=== PATIENT | male | born 1990 | race Caucasian/White ===

== ENCOUNTER 2017-10-04 18:46 | Inpatient (IN) | payer BC ==
[~2017-10-04] VITALS: Ht 182.9 cm; Wt 80.7 kg
--- NOTE | 2017-10-04 19:16 | NUR ---
MD KEANE AT BEDSIDE FOR MSE
--- NOTE | 2017-10-04 19:34 | NUR ---
PT REFUSING BLOOD DRAW. MADE AWARE.
[2017-10-04 19:56] LABS: *BILIRUBIN,URIN NEGATIVE (NEGATIVE); *BLOOD, URINE NEGATIVE (NEGATIVE); *CLARITY,URINE CLEAR (CLEAR); *COLOR,URINE LIGHT YELLOW (YELLOW); *KETONES,URINE NEGATIVE (NEGATIVE); *PROTEIN,URINE NEGATIVE (NEGATIVE); *UROBILINOGEN,URINE 0.2 E.U./dl (NORMAL); LEUKOCYTE ESTERASE ,URINE NEGATIVE (NEGATIVE); NITRITE, URINE NEGATIVE (NEGATIVE); UGLUCOSE NEGATIVE (NEGATIVE)
--- NOTE | 2017-10-04 19:58 | NUR ---
US AT BEDSIDE
[2017-10-04 20:02] LABS: WBC,URINE NONE SEEN /HPF (0-3)
--- NOTE | 2017-10-04 20:34 | NUR ---
PT IN ROUTE TO CT IN [place] W/ TRANSPORTER
--- NOTE | 2017-10-04 20:50 | NUR ---
PT RETURNS FROM CT IN [place] W/ NIECY
[2017-10-04] MEDS ORDERED: IV NS 1000 ML 1,000 ML IV PRN (21:15)
[2017-10-04] MEDS ORDERED: PIPERACILLIN/TAZOBACTAM/D5W 3.375 G in PREMIXED 1 EACH IV ONE (21:15)
--- NOTE | 2017-10-04 21:18 | NUR ---
Dr Deleon speaking with DR Montague for surgery consult
[2017-10-04] MEDS ORDERED: IV NS 1000 ML 1,000 ML IV ONE (21:30)
[2017-10-04] MEDS ORDERED: LORAZEPAM 2 MG/1 ML VIAL IV ONE (21:30)
[2017-10-04] MEDS ORDERED: ONDANSETRON IV *ER 4 MG/2 ML VIAL IV ONE (21:46)
[2017-10-04] MEDS ORDERED: LORAZEPAM 2 MG/1 ML VIAL ONE (21:46)
[2017-10-04] MEDS ORDERED: PIPERACILLIN/TAZOBACTAM/D5W 50 ML IV ONE (21:47)
[2017-10-04] MEDS ORDERED: ONDANSETRON 4 MG/2 ML VIAL ONE (21:54)
[2017-10-04] MEDS ORDERED: PANTOPRAZOLE SODIUM 40 MG VIAL ONE (21:54)
[2017-10-04 21:57] LABS: BASOPHILS # (AUTO) 0.1 K/uL (0.0-8.0); BASOPHILS % (AUTO) 0.7 % (0.0-2.0); EOSINOPHILS # (AUTO) 0.4 K/uL (0.0-0.7); EOSINOPHILS % (AUTO) 2.8 % (0.0-7.0); HEMOGLOBIN 16.2 g/dL (12.5-16.3); LYMPHOCYTES # (AUTO) 3.1 K/uL (20.0-40.0); LYMPHOCYTES % (AUTO) 23.5 % (20.5-51.5); MEAN CORPUSCULAR HEMOGLOBIN 31.5 uug (23.8-33.4); MEAN CORPUSCULAR HGB CONC 34 g/dL (32.5-36.3); MEAN CORPUSCULAR VOLUME 91.5 fL (73.0-96.2); MONOCYTES % (AUTO) 7.8 % (0.0-11.0); NEUTROPHILS # (AUTO) 8.6 K/uL (1.8-8.9); NEUTROPHILS % (AUTO) 65.2 % (38.5-71.5); PLATELET COUNT (AUTO) 297 K/uL (152-348); RED BLOOD CELL COUNT(AUTO) 5.14 MIL/uL (4.06-5.63); WHITE BLOOD COUNT (AUTO) 13.1 K/uL (3.6-10.2)
[2017-10-04] MEDS ORDERED: PANTOPRAZOLE SODIUM 40 MG VIAL IV ONE (22:00)
[2017-10-04 22:05] LABS: POTASSIUM 3.5 mmol/L (3.5-5.1)
[2017-10-04 22:10] LABS: BILIRUBIN,TOTAL 0.5 mg/dL (0.2-1.0); TOTAL PROTEIN, SERUM 8.3 g/dL (6.4-8.2)
--- NOTE | 2017-10-04 22:30 | NUR ---
REPORT GIVEN TO [facility] NURSEANGEL
--- NOTE | 2017-10-04 22:40 | NUR ---
Pt. admitted to [facility], under care of CHEF CONCIERGE SAJAN Belongs List completed
[2017-10-04 22:45] VITALS: BP 121/73
[2017-10-05] MEDS ORDERED: Z GUARD REMEDY PASTE 57 GM TUBE TOP PRN
[2017-10-05] MEDS ORDERED: ONDANSETRON 4 MG/2 ML VIAL IV PRN
[2017-10-05] MEDS ORDERED: ACETAMINOPHEN 325 MG TABLET PO PRN
[2017-10-05] MEDS: MORPHINE SULFATE 2 MG/1 ML DISP.SYRIN IV PRN ×3 (00:17→20:20)
[2017-10-05] MEDS: LORAZEPAM 2 MG/1 ML VIAL IV PRN ×2 (00:48→10:35)
[2017-10-05 03:44] VITALS: BP 99/64
[2017-10-05] MEDS ORDERED: PIPERACILLIN/TAZOBACTAM/D5W 50 ML IV ONE (04:57)
[2017-10-05] MEDS: PIPERACILLIN/TAZOBACTAM/D5W 3.375 G in PREMIXED 1 EACH IV SCH ×3 (05:20→22:59)
[2017-10-05] MEDS ORDERED: LIDOCAINE 1%-EPI 1:100,000 20 ML VIAL ONE (05:33)
[2017-10-05] MEDS ORDERED: BUPIVACAINE 0.25% 30 ML VIAL ONE ×2 (05:33→17:26)
[2017-10-05 06:13] LABS: BASOPHILS # (AUTO) 0.1 K/uL (0.0-8.0); BASOPHILS % (AUTO) 0.6 % (0.0-2.0); EOSINOPHILS # (AUTO) 0.3 K/uL (0.0-0.7); EOSINOPHILS % (AUTO) 2.9 % (0.0-7.0); HEMATOCRIT 42.2 % (36.7-47.1); HEMOGLOBIN 14.6 g/dL (12.5-16.3); LYMPHOCYTES # (AUTO) 2.4 K/uL (20.0-40.0); LYMPHOCYTES % (AUTO) 22.8 % (20.5-51.5); MEAN CORPUSCULAR HEMOGLOBIN 31.8 uug (23.8-33.4); MEAN CORPUSCULAR HGB CONC 35 g/dL (32.5-36.3); MEAN CORPUSCULAR VOLUME 91.7 fL (73.0-96.2); MONOCYTES % (AUTO) 9.1 % (0.0-11.0); NEUTROPHILS # (AUTO) 6.9 K/uL (1.8-8.9); NEUTROPHILS % (AUTO) 64.6 % (38.5-71.5); PLATELET COUNT (AUTO) 247 K/uL (152-348); WHITE BLOOD COUNT (AUTO) 10.6 K/uL (3.6-10.2)
[2017-10-05 06:37] LABS: CREATININE 1.1 mg/dL (0.6-1.3); PHOSPHOROUS 4.5 mg/dL (2.5-4.9); POTASSIUM 3.7 mmol/L (3.5-5.1)
--- NOTE | 2017-10-05 07:25 | NUR ---
RECEIVED PATIENT ON BED ASLEEP, AAOX4. IV ACCESS ON RIGHT AC #18 INTACT AND PATENT RUNNING NS @ 75 CC/HR INFUSING WELL. WBC TRENDING DOWN 10.6 THIS AM. AFEBRILE. ON NPO. PENDING LAP APPENDECTOMY LATER TODAY. CONSENT SIGNED. COMFORT MEASURES PROVIDED. CALL LIGHT WITHIN REACH WILL CONTINUE TO MONITOR CLOSELY.
[2017-10-05] MEDS: PANTOPRAZOLE SODIUM 40 MG VIAL IV SCH (08:20)
[2017-10-05 11:52] VITALS: BP 113/59
[2017-10-05] MEDS: IV NS 1000 ML 1,000 ML IV PRN (14:43)
[2017-10-05 15:32] VITALS: BP 110/63
--- NOTE | 2017-10-05 15:58 | NUR ---
PATIENT TAKEN DOWN TO OR FOR LAP APPENDECTOMY. CONSENT SIGNED. PRE OP CHECKLIST DONE.
[2017-10-05] MEDS ORDERED: MIDAZOLAM HCL 10 MG/2 ML VIAL ONE (16:20)
[2017-10-05] MEDS ORDERED: SUCCINYLCHOLINE CHLORIDE 200 MG/10 ML VIAL ONE (16:21)
[2017-10-05] MEDS ORDERED: FENTANYL CITRATE 100 MCG/2 ML AMPUL ONE (16:21)
[2017-10-05] MEDS ORDERED: SEVOFLURANE 250 ML BOTTLE IH ONE (16:40)
[2017-10-05] MEDS ORDERED: NEOSTIGMINE METHYLSULFATE 10 MG/10 ML VIAL IV ONE (16:50)
[2017-10-05] MEDS ORDERED: IV NORMAL SALINE 1000 ML BAG IV ONE (16:50)
[2017-10-05] MEDS ORDERED: ONDANSETRON 4 MG/2 ML VIAL IV ONE (16:50)
[2017-10-05] MEDS ORDERED: VECURONIUM BROMIDE 10 MG VIAL IV ONE (16:50)
[2017-10-05] MEDS ORDERED: DEXAMETHASONE SOD PHOSPHATE 4 MG INJ IV ONE (16:50)
[2017-10-05] MEDS ORDERED: LIDOCAINE HCL 1% 20 ML VIAL MC ONE (16:50)
[2017-10-05] MEDS ORDERED: PROPOFOL 200 MG/20 ML BOTTLE IV ONE (16:50)
[2017-10-05] MEDS ORDERED: GLYCOPYRROLATE 0.2 MG/ML VIAL MC ONE (16:50)
[2017-10-05] MEDS ORDERED: KETOROLAC TROMETHAMINE 30 MG INJ IM ONE (16:50)
[2017-10-05] MEDS ORDERED: HYDROMORPHONE 2 MG/1 ML DISP.SYRIN ONE (17:00)
[2017-10-05] MEDS ORDERED: HYDROGEN PEROXIDE 3% 118 ML BOTTLE ONE (17:00)
--- NOTE | 2017-10-05 18:50 | NUR ---
PATIENT BACK IN ROOM S/P LAP APPENDECTOMY. CONTINUE IVF. NEW ORDERS NOTED AND CARRIED OUT. ON O2 @ 2LPM. WILL CONTINUE TO MONITOR CLOSELY.
--- NOTE | 2017-10-05 19:25 | NUR ---
RECEIVED PT AWAKE, ALERT, ORIENTEDX4. PT SHOWS NO SIGNS OF DISTRESS. PT IV INTACT AND PATENT. PT INCISION INTACT AND NO BLOOD SHOWN. MOTHER AT BEDSIDE.SAFETY AND COMFORT PROVIDED. WILL CONTINUE TO MONITOR.
[2017-10-05 20:00] VITALS: BP 104/65
[2017-10-05] MEDS: HYDROMORPHONE 2 MG/1 ML DISP.SYRIN IV PRN (23:56)
[2017-10-06] MEDS: LORAZEPAM 2 MG/1 ML VIAL IV PRN ×2 (01:23→10:40)
[2017-10-06] MEDS: MORPHINE SULFATE 4 MG/1 ML DISP.SYRIN IV PRN ×5 (02:07→11:51)
[2017-10-06 04:00] VITALS: BP 104/71
[2017-10-06] MEDS: PIPERACILLIN/TAZOBACTAM/D5W 3.375 G in PREMIXED 1 EACH IV SCH ×2 (05:01→13:46)
--- NOTE | 2017-10-06 06:44 | NUR ---
CALLED DR. DESHAWN ARNOLD FOR PT REGARDING PT HAS PASS GAS A LITTLE AND ASKING IF HE CAN ADVANCE HIS DIET. DOCTOR ORDERED ADVANCE DIET TOLERATED. CLEAR LIQUID FOR THE PT. CHARGE NURSE WITNESS AND AWARE. PT VITAL SIGNS STABLE. WILL CONTINUE TO MONITOR.
--- NOTE | 2017-10-06 06:48 | NUR ---
PT SLEPT INTERMITTENTLY DURING THE SHIFT. PT SHOWS NO SIGNS OF ACUTE DISTRESS. PT IV INTACT AND PATENT. PRESCRIBED MEDICATION GIVEN AND PT TOLERATED IT WELL.PT STABLE. INCENTIVE SPIROMETER GIVEN AND INSTRUCTED THE PT TO USE. PT USING IT. PT AMBULATED AROUND THE BRICENO. PT REFUSED HIS BLOOD DRAWN. PT GIVEN PAIN MEDICATION AT 2020H, 2356H, 0207H ,0446H FOR SEVERE PAIN ON HIS ABDOMEN. PT PASS GAS A LITTLE. NOTIFY THE DOCTOR ABOUT IT. CHARGE NURSE AWARE. DR ADVANCE HIS DIET TO CLEAR LIQUID. SAFETY AND COMFORT PROVIDED. WILL ENDORSE TO INCOMING NURSE FOR CONTINUITY OF CARE.
[2017-10-06] MEDS: IV NS 1000 ML 1,000 ML IV PRN (07:03)
[2017-10-06] MEDS: PANTOPRAZOLE SODIUM 40 MG VIAL IV SCH (08:29)
[2017-10-06 11:20] VITALS: BP 114/76
[2017-10-06] MEDS: HYDROMORPHONE 2 MG/1 ML DISP.SYRIN IV PRN ×3 (13:39→18:40)
[2017-10-06 15:18] VITALS: BP 112/76
--- NOTE | 2017-10-06 18:59 | NUR ---
PT RESTING IN BED WITH NO SIGNS OF RESPIRATORY DISTRESS. MOTHER AT BEDSIDE, PT WILL BE DISCHARGING AT 1940, WITH EXIT CARE PACKET, ALL BELONGINGS AND VALUABLES. PT REFUSED TO HAVE APPOINTMENT MADE AND WAS GIVEN INFORMATION TO CONTACT [facility]. CONTINUE TO MONITOR PT. SHIFT REPORT PASS ON TO THERAPE[employer]IC SALES SPECIALIST.
--- NOTE | 2017-10-06 19:30 | NUR ---
Pt discharged home via wheelchair in stable condition with mother. Per day shift nurse, pt aware of discharge instructions and belongings done.
[2017-10-07] MEDS ORDERED: PANTOPRAZOLE SODIUM 40 MG TABLET.DR PO SCH (07:00)
== END 2017-10-06 20:54 | disposition home or self-care (01) | DRG 340 ==
LOC: ER 18:47 → MED 22:33
PROVIDERS: ADMIT Hospitalist; ATTEND Hospitalist
PROC: 0DTJ4ZZ Resection of Appendix, Percutaneous Endoscopic Approach (ICD-10-PCS; principal; 2017-10-05 16:40)
DX: K35.3 Acute appendicitis with localized peritonitis (principal); F31.9 Bipolar disorder, unspecified; F41.9 Anxiety disorder, unspecified; Z87.891 Personal history of nicotine dependence; Z91.14 Patient's other noncompliance with medication regimen; F12.90 Cannabis use, unspecified, uncomplicated; K76.0 Fatty (change of) liver, not elsewhere classified; E73.9 Lactose intolerance, unspecified
CPT/HCPCS: 36415; 71045; 76705; 83690; 83735; 84100; 85025; 85610; A4663; C9113; J0330; J1100; J1170; J1885; J2060; J2250; J2270; J2405; J2543; J2710; J3010; J3490; J7030; J7120